=== PATIENT | female | born 1960 | race Caucasian/White ===

== ENCOUNTER 2016-07-16 16:31 | Emergency (ER) | payer SELFPAY | END 2016-07-16 19:01 | disposition home or self-care (01) | LOC: FER 16:31 | DX: S46.912A Strain of unspecified muscle, fascia and tendon at shoulder and upper arm level, left arm, initial encounter (principal); L29.9 Pruritus, unspecified; I10 Essential (primary) hypertension; Z88.5 Allergy status to narcotic agent; Z79.899 Other long term (current) drug therapy | CPT/HCPCS: J1885; J2930 ==

== ENCOUNTER 2020-06-03 12:23 | Emergency (ER) | payer OTHER ==
[~2020-06-03 12:23] MED LIST: BACLOFEN 10MG T10 MG PO; KEFLEX250 MG PO; LISINOPRIL-HCT1 EAC1 PO; MEDROL 4MG DOSEP4 MG PO; NAPROXEN500 MG PO; NERVE PILL
[2020-06-03] MEDS ORDERED: TRAMADOL HCL50 MG PO (14:02)
== END 2020-06-03 14:38 | disposition home or self-care (01) ==
LOC: FER 12:23
DX: S46.912A Strain of unspecified muscle, fascia and tendon at shoulder and upper arm level, left arm, initial encounter (principal); I10 Essential (primary) hypertension; E11.9 Type 2 diabetes mellitus without complications; Z88.5 Allergy status to narcotic agent; X58.XXXA Exposure to other specified factors, initial encounter; Y92.009 Unspecified place in unspecified non-institutional (private) residence as the place of occurrence of the external cause
CPT/HCPCS: 73030; 73080; J1100